=== PATIENT | male | born 2000 ===

== ENCOUNTER 2023-06-28 14:57 | Emergency (ER) | payer SELFPAY | END 2023-06-28 17:13 | disposition home or self-care (01) | LOC: MW.ED 14:57 | DX: S63.502A Unspecified sprain of left wrist, initial encounter (principal); Z75.8 Other problems related to medical facilities and other health care; X50.1XXA Overexertion from prolonged static or awkward postures, initial encounter; Y93.89 Activity, other specified; Y99.0 Civilian activity done for income or pay | CPT/HCPCS: 29125; 73110-26-LT; 73110-LT; 99283; 99283-25 ==